=== PATIENT | male | born 1940 | race African-American/Black ===

== ENCOUNTER 2017-07-22 14:59 | Inpatient (IN) | payer MEDICARE, MEDICAID ==
[~2017-07-22] VITALS: Ht 193 cm; Wt 112.5 kg
[2017-07-22] MEDS ORDERED: ALBUTEROL (0.083%) 2.5MG/3ML NEB HHN STA (15:54)
[2017-07-22 16:18] LABS: EOSINOPHILS % 0.5 % (0.0-5.0); HEMATOCRIT. 42.4 % (42.0-52.0); HEMOGLOBIN. 14.1 g/dL (14.0-18.0); LYMPHOCYTES % 27.1 % (20.0-50.0); MEAN CORPUSCULAR VOLUME 87.2 fL (80.0-94.0); MEAN PLATELET VOLUME 10.3 fl (7.4-10.4); MONOCYTES % 10.3 % (2.0-8.0); NEUTROPHILS % 61.1 % (40.0-76.0); PLATELET 139 x1000/uL (130-400); RED BLOOD CELL COUNT 4.86 mill/uL (4.7-6.1); RED CELL DISTRIBUTION WIDTH 16.5 % (11.6-14.6)
[2017-07-22 16:22] LABS: INR 1.4
[2017-07-22 16:43] LABS: CARBON DIOXIDE 17 mEq/L (21-32); CHLORIDE 111 mEq/L (98-107)
[2017-07-22 16:50] LABS: TROPONIN I 0.43 ng/mL (0.00-0.04)
[2017-07-22] MEDS ORDERED: ASPIRIN 325MG EC TABLET PO ONE (17:00)
[2017-07-22] MEDS ORDERED: CLONIDINE 0.1MG TABLET PO PRN (19:00)
[2017-07-22] MEDS ORDERED: NITROGLYCERIN 0.4MG TABLET SL SL PRN (19:00)
[2017-07-22] MEDS ORDERED: ACETAMINOPHEN 325MG TABLET PO PRN (19:00)
[2017-07-22] MEDS ORDERED: NA PHOS,M-B/NA PHOS,DI-BA ENEMA 118ML PR PRN (19:00)
[2017-07-22] MEDS ORDERED: DIPHENHYDRAMINE 50MG/ML VIAL IV PRN (19:00)
[2017-07-22] MEDS ORDERED: TRAMADOL 50MG TABLET PO PRN (19:00)
[2017-07-22] MEDS ORDERED: MAGNESIUM/ALUMINUM HYDROXIDE/SIMETHICONE 30ML UDC PO PRN (19:00)
[2017-07-22] MEDS ORDERED: ONDANSETRON HCL 4MG/2ML VIAL IV PRN (19:00)
[2017-07-22] MEDS ORDERED: ZOLPIDEM TARTRATE 5MG TABLET PO PRN (19:00)
[2017-07-22] MEDS ORDERED: LORAZEPAM 2MG/ML CPJ IV PRN (19:00)
[2017-07-22] MEDS ORDERED: GUAIFENESIN 200MG/10ML SUGAR FREE UDC PO PRN (19:00)
[2017-07-22] MEDS ORDERED: MORPHINE SULFATE 2 MG/ML CPJ (NOT FOR IM USE) IV PRN (19:00)
[2017-07-22] MEDS ORDERED: DOCUSATE SODIUM 100MG CAPSULE PO PRN (19:00)
[2017-07-22] MEDS ORDERED: IPRATROPIUM/ALBUTEROL 0.5-3(2.5)MG/3ML NEB INH PRN (19:00)
[2017-07-22 19:49] LABS: HEPATITIS B SURFACE ANTIGEN NEGATIVE
[2017-07-22 19:54] LABS: FOLIC ACID (FOLATE) SERUM 12.9 ng/mL (>5.38)
[2017-07-22 20:00] VITALS: BP_SYST 142; BP_DIAS 70; BP_DIAS 76
[2017-07-22 20:18] LABS: HEPATITIS B CORE AB IGM NEGATIVE
[2017-07-22 20:19] LABS: HEPATITIS A AB IGM NEGATIVE (NEGATIVE)
[2017-07-22] MEDS: FAMOTIDINE 20MG/2ML VIAL IV SCH (20:48)
[2017-07-22] MEDS: METOPROLOL TARTRATE 25MG TABLET PO SCH (20:49)
[2017-07-22] MEDS: ENOXAPARIN 40MG/0.4ML SYR SUBCUT SCH (20:50)
[2017-07-23] VITALS: BP 113/72
[2017-07-23 01:28] LABS: CREATINE KINASE MB FRACTION 1.7 ng/mL (0.5-3.6); TROPONIN I 0.37 ng/mL (0.00-0.04)
[2017-07-23] MEDS ORDERED: LOSA25TA12 PO (01:49)
[2017-07-23] MEDS ORDERED: AMIO100T4 PO (01:49)
[2017-07-23] MEDS ORDERED: HYDR-4133 PO (01:49)
[2017-07-23 04:00] VITALS: BP 115/70
[2017-07-23 08:00] VITALS: BP 112/79
[2017-07-23] MEDS: ASPIRIN 325MG EC TABLET PO SCH (09:10)
[2017-07-23] MEDS: METOPROLOL TARTRATE 25MG TABLET PO SCH ×2 (09:10→21:00)
[2017-07-23 11:35] LABS: BASOPHILS % 1.3 % (0.0-2.0); EOSINOPHILS % 0.5 % (0.0-5.0); HEMATOCRIT. 43.6 % (42.0-52.0); HEMOGLOBIN. 14.4 g/dL (14.0-18.0); LYMPHOCYTES % 23.6 % (20.0-50.0); MEAN CORPUSCULAR VOLUME 88.1 fL (80.0-94.0); MONOCYTES % 10.7 % (2.0-8.0); NEUTROPHILS % 63.9 % (40.0-76.0); PLATELET 139 x1000/uL (130-400); RED BLOOD CELL COUNT 4.95 mill/uL (4.7-6.1); RED CELL DISTRIBUTION WIDTH 17.1 % (11.6-14.6)
[2017-07-23 11:50] LABS: CARBON DIOXIDE 22 mEq/L (21-32); CHLORIDE 110 mEq/L (98-107)
[2017-07-23 11:54] LABS: CREATINE KINASE MB FRACTION 1.9 ng/mL (0.5-3.6); TROPONIN I 0.32 ng/mL (0.00-0.04)
[2017-07-23 12:00] VITALS: BP 102/63
[2017-07-23 16:00] VITALS: BP 105/72
[2017-07-23 20:00] VITALS: BP 101/68
[2017-07-23] MEDS: FAMOTIDINE 20MG/2ML VIAL IV SCH (21:12)
[2017-07-23] MEDS: ENOXAPARIN 40MG/0.4ML SYR SUBCUT SCH (21:13)
[2017-07-24] VITALS: BP 94/64
[2017-07-24 02:42] LABS: *AMPHETAMINES SCREEN URINE NEGATIVE (NEGATIVE); *BARBITURATES SCREEN URINE NEGATIVE (NEGATIVE); *BENZODIAZEPINES SCREEN URINE NEGATIVE (NEGATIVE); *COCAINE SCREEN URINE NEGATIVE (NEGATIVE); CANNABINOID URINE SCREEN NEGATIVE (NEGATIVE); METHADONE URINE SCREEN NEGATIVE (NEGATIVE); OPIATES URINE SCREEN NEGATIVE (NEGATIVE); PHENCYCLIDINE URINE SCREEN NEGATIVE (NEGATIVE)
[2017-07-24 04:00] VITALS: BP 91/54
[2017-07-24 08:00] VITALS: BP 104/77
[2017-07-24] MEDS: ASPIRIN 325MG EC TABLET PO SCH (08:51)
[2017-07-24] MEDS: METOPROLOL TARTRATE 25MG TABLET PO SCH ×2 (08:51→08:52)
[2017-07-24 09:07] LABS: BASOPHILS % 1.2 % (0.0-2.0); EOSINOPHILS % 1.3 % (0.0-5.0); HEMATOCRIT. 42.9 % (42.0-52.0); HEMOGLOBIN. 14.2 g/dL (14.0-18.0); LYMPHOCYTES % 33.2 % (20.0-50.0); MEAN CORPUSCULAR HEMOGLOBIN 29.3 pg (28.0-32.0); MEAN CORPUSCULAR VOLUME 88.7 fL (80.0-94.0); MEAN PLATELET VOLUME 10.2 fl (7.4-10.4); MONOCYTES % 9.9 % (2.0-8.0); NEUTROPHILS % 54.4 % (40.0-76.0); PLATELET 134 x1000/uL (130-400); RED BLOOD CELL COUNT 4.84 mill/uL (4.7-6.1); RED CELL DISTRIBUTION WIDTH 17.6 % (11.6-14.6)
[2017-07-24 11:20] VITALS: BP 104/77
[2017-07-24 12:00] VITALS: BP 122/85
== END 2017-07-24 13:35 | disposition home health service (06) | DRG 280 ==
LOC: ER 16:05 → 7WST 17:14 → EDBEDREQ 17:18 → ENRESERV 17:39 → SUPCPDRO 18:47
PROVIDERS: ADMIT Internal Medicine; ATTEND Internal Medicine
DX: I21.4 Non-ST elevation (NSTEMI) myocardial infarction (principal); N17.0 Acute kidney failure with tubular necrosis; E44.0 Moderate protein-calorie malnutrition; I13.0 Hypertensive heart and chronic kidney disease with heart failure and stage 1 through stage 4 chronic kidney disease, or unspecified chronic kidney disease; I42.0 Dilated cardiomyopathy; E83.52 Hypercalcemia; I50.9 Heart failure, unspecified; J44.1 Chronic obstructive pulmonary disease with (acute) exacerbation; E66.9 Obesity, unspecified; I25.10 Atherosclerotic heart disease of native coronary artery without angina pectoris; J45.909 Unspecified asthma, uncomplicated; N18.9 Chronic kidney disease, unspecified; N40.0 Benign prostatic hyperplasia without lower urinary tract symptoms; Z79.82 Long term (current) use of aspirin; Z85.46 Personal history of malignant neoplasm of prostate; Z95.810 Presence of automatic (implantable) cardiac defibrillator; Z68.30 Body mass index [BMI] 30.0-30.9, adult; Z79.899 Other long term (current) drug therapy; I25.2 Old myocardial infarction
CPT/HCPCS: 36415; 71010; 76700; 80048; 80053; 80061; 80305; 82550; 82553; 82607; 82746; 83036; 83540; 83550; 83735; 83880; 84484; 85025; 85610; 86705; 86709; 86803; 87340; 93005; 93306; 93970; 94640; 97116; 97162; 99285; J1650; J3490; J7611

== ENCOUNTER 2017-08-18 13:36 | Inpatient (IN) | payer MEDICARE, MEDICAID ==
[~2017-08-18] VITALS: Ht 193 cm; Wt 115.2 kg
[~2017-08-18 13:36] MED LIST: AMIO100T4 PO; HYDR-4133 PO; LOSA25TA12 PO
[2017-08-18] MEDS ORDERED: CLONIDINE 0.2MG TABLET PO PRN (14:00)
[2017-08-18 14:04] VITALS: BP 105/78
[2017-08-18 14:22] VITALS: BP 105/78
[2017-08-18] MEDS ORDERED: FURO-151 PO (15:26)
[2017-08-18] MEDS ORDERED: ASPI-1159 PO (15:26)
[2017-08-18 15:30] LABS: HEMATOCRIT. 46.5 % (42.0-52.0); HEMOGLOBIN. 15.2 g/dL (14.0-18.0); MEAN CORPUSCULAR HEMOGLOBIN 29.2 pg (28.0-32.0); MEAN CORPUSCULAR VOLUME 89.3 fL (80.0-94.0); MEAN PLATELET VOLUME 9.7 fl (7.4-10.4); PLATELET 113 x1000/uL (130-400); RED BLOOD CELL COUNT 5.21 mill/uL (4.7-6.1); RED CELL DISTRIBUTION WIDTH 18.3 % (11.6-14.6)
[2017-08-18] MEDS: LOSARTAN POTASSIUM 25 MG TABLET PO SCH (15:33)
[2017-08-18 15:53] LABS: CARBON DIOXIDE 24 mEq/L (21-32); CHLORIDE 104 mEq/L (98-107); TROPONIN I 0.05 ng/mL (0.00-0.04)
[2017-08-18] MEDS: AMIODARONE HCL 200 MG TABLET PO SCH (16:07)
[2017-08-18] MEDS: ASPIRIN 81MG EC TABLET PO SCH (16:07)
[2017-08-18] MEDS: FUROSEMIDE 40MG/4ML VIAL IVP SCH (16:11)
[2017-08-18 16:42] VITALS: BP 128/89
[2017-08-18 17:36] LABS: PLATELET ESTIMATE DECREASED
[2017-08-18] MEDS: ENOXAPARIN 40MG/0.4ML SYR SUBCUT SCH (18:03)
[2017-08-18 19:32] LABS: CLARITY URINE CLEAR (CLEAR); COLOR URINE DARK YELLOW (YELLOW); GLUCOSE URINE NEGATIVE (NEGATIVE); KETONES URINE NEGATIVE (NEGATIVE); LEUKOCYTE ESTERASE URINE 1+ (NEGATIVE); NITRITE URINE NEGATIVE (NEGATIVE); OCCULT BLOOD URINE NEGATIVE (NEGATIVE); PROTEIN URINE 3+ (NEGATIVE); SPECIFIC GRAVITY URINE 1.019 (1.005-1.030)
[2017-08-18 20:00] VITALS: BP 121/82
[2017-08-18] MEDS: ALBUTEROL (0.083%) 2.5MG/3ML NEB HHN SCH (22:06)
[2017-08-19] VITALS: BP_SYST 110; BP_SYST 111; BP_DIAS 65; BP_DIAS 71
[2017-08-19] MEDS: ALBUTEROL (0.083%) 2.5MG/3ML NEB HHN SCH ×4 (02:44→21:04)
[2017-08-19 04:00] VITALS: BP 96/54
[2017-08-19 05:53] LABS: BASOPHILS % 1.1 % (0.0-2.0); EOSINOPHILS % 0.8 % (0.0-5.0); HEMATOCRIT. 42.8 % (42.0-52.0); HEMOGLOBIN. 13.9 g/dL (14.0-18.0); MEAN CORPUSCULAR VOLUME 89.6 fL (80.0-94.0); MEAN PLATELET VOLUME 9.9 fl (7.4-10.4); MONOCYTES % 10.1 % (2.0-8.0); PLATELET 108 x1000/uL (130-400); RED BLOOD CELL COUNT 4.78 mill/uL (4.7-6.1); RED CELL DISTRIBUTION WIDTH 18.6 % (11.6-14.6)
[2017-08-19 06:43] LABS: CARBON DIOXIDE 25 mEq/L (21-32); CHLORIDE 104 mEq/L (98-107)
[2017-08-19] MEDS ORDERED: LEVOTHYROXINE SODIUM 50MCG TABLET PO SCH (06:45)
[2017-08-19 07:04] LABS: HDL CHOLESTEROL 22 mg/dL (40-59); LDL CHOLESTEROL 67 mg/dL (5-100); TROPONIN I 0.05 ng/mL (0.00-0.04)
[2017-08-19 08:00] VITALS: BP 114/81
[2017-08-19] MEDS: LOSARTAN POTASSIUM 25 MG TABLET PO SCH (09:00)
[2017-08-19] MEDS: FUROSEMIDE 40MG/4ML VIAL IVP SCH ×2 (09:09→18:09)
[2017-08-19] MEDS: ASPIRIN 81MG EC TABLET PO SCH (09:09)
[2017-08-19] MEDS: AMIODARONE HCL 200 MG TABLET PO SCH (09:09)
[2017-08-19] MEDS: ENOXAPARIN 40MG/0.4ML SYR SUBCUT SCH (09:10)
[2017-08-19 12:00] VITALS: BP 112/63
[2017-08-19] MEDS: POTASSIUM CHLORIDE 20MEQ TABLET SR PO SCH (13:39)
[2017-08-19 16:00] VITALS: BP 96/62
[2017-08-19] MEDS: UMECLIDINIUM BROMIDE 1 INH BLST.W.DEV IH SCH (18:28)
[2017-08-19 20:00] VITALS: BP 117/79
[2017-08-20] VITALS: BP 120/78
[2017-08-20] MEDS: ALBUTEROL (0.083%) 2.5MG/3ML NEB HHN SCH ×2 (02:49→09:03)
[2017-08-20 04:00] VITALS: BP 110/76
[2017-08-20 06:06] LABS: EOSINOPHILS % 0.5 % (0.0-5.0); HEMATOCRIT. 43.3 % (42.0-52.0); HEMOGLOBIN. 14.1 g/dL (14.0-18.0); LYMPHOCYTES % 25.5 % (20.0-50.0); MEAN CORPUSCULAR HEMOGLOBIN 28.9 pg (28.0-32.0); MEAN CORPUSCULAR VOLUME 88.5 fL (80.0-94.0); MEAN PLATELET VOLUME 10.2 fl (7.4-10.4); MONOCYTES % 10.2 % (2.0-8.0); NEUTROPHILS % 62.8 % (40.0-76.0); PLATELET 121 x1000/uL (130-400); RED BLOOD CELL COUNT 4.89 mill/uL (4.7-6.1); RED CELL DISTRIBUTION WIDTH 18.1 % (11.6-14.6)
[2017-08-20] MEDS: FUROSEMIDE 40MG/4ML VIAL IVP SCH ×2 (06:36→17:39)
[2017-08-20] MEDS: LEVOTHYROXINE SODIUM 75MCG TABLET PO SCH (06:36)
[2017-08-20 06:53] LABS: T4 FREE 1.77 ng/dL (0.76-1.46)
[2017-08-20 08:00] VITALS: BP 119/80
[2017-08-20] MEDS: LOSARTAN POTASSIUM 25 MG TABLET PO SCH (09:00)
[2017-08-20] MEDS: POTASSIUM CHLORIDE 20MEQ TABLET SR PO SCH (09:34)
[2017-08-20] MEDS: ENOXAPARIN 40MG/0.4ML SYR SUBCUT SCH (09:34)
[2017-08-20] MEDS: AMIODARONE HCL 200 MG TABLET PO SCH (09:34)
[2017-08-20] MEDS: ASPIRIN 81MG EC TABLET PO SCH (09:34)
[2017-08-20 12:00] VITALS: BP 115/76
[2017-08-20] MEDS: UMECLIDINIUM BROMIDE 1 INH BLST.W.DEV IH SCH (14:00)
[2017-08-20 16:00] VITALS: BP 111/70
[2017-08-20 20:00] VITALS: BP 107/73
[2017-08-21] VITALS: BP 100/59
[2017-08-21 04:00] VITALS: BP 98/64
[2017-08-21] MEDS: FUROSEMIDE 40MG/4ML VIAL IVP SCH ×2 (06:50→17:29)
[2017-08-21] MEDS: LEVOTHYROXINE SODIUM 75MCG TABLET PO SCH (06:50)
[2017-08-21 08:00] VITALS: BP 124/94
[2017-08-21] MEDS: LOSARTAN POTASSIUM 25 MG TABLET PO SCH (08:41)
[2017-08-21] MEDS: AMIODARONE HCL 200 MG TABLET PO SCH (09:18)
[2017-08-21] MEDS: ASPIRIN 81MG EC TABLET PO SCH (09:18)
[2017-08-21] MEDS: POTASSIUM CHLORIDE 20MEQ TABLET SR PO SCH (09:18)
[2017-08-21] MEDS: ENOXAPARIN 40MG/0.4ML SYR SUBCUT SCH (09:18)
[2017-08-21] MEDS: UMECLIDINIUM BROMIDE 1 INH BLST.W.DEV IH SCH (09:19)
[2017-08-21 11:42] VITALS: BP 118/82
[2017-08-21] MEDS: ISOSORB DINIT/HYDRALAZINE HCL 20/37.5MG TABLET PO SCH ×2 (14:22→21:13)
[2017-08-21 16:00] VITALS: BP 107/59
[2017-08-21 20:00] VITALS: BP 97/66
[2017-08-22] VITALS: BP 100/60
[2017-08-22 04:00] VITALS: BP 96/66
[2017-08-22] MEDS: ISOSORB DINIT/HYDRALAZINE HCL 20/37.5MG TABLET PO SCH ×3 (06:00→21:17)
[2017-08-22] MEDS: LEVOTHYROXINE SODIUM 75MCG TABLET PO SCH (06:04)
[2017-08-22 07:38] VITALS: BP 121/80
[2017-08-22 07:41] LABS: BASOPHILS % 1.1 % (0.0-2.0); EOSINOPHILS % 1.2 % (0.0-5.0); HEMATOCRIT. 41.4 % (42.0-52.0); HEMOGLOBIN. 13.5 g/dL (14.0-18.0); LYMPHOCYTES % 22.6 % (20.0-50.0); MEAN CORPUSCULAR HEMOGLOBIN 29.1 pg (28.0-32.0); MEAN PLATELET VOLUME 9.8 fl (7.4-10.4); MONOCYTES % 9.7 % (2.0-8.0); NEUTROPHILS % 65.4 % (40.0-76.0); PLATELET 115 x1000/uL (130-400); RED BLOOD CELL COUNT 4.65 mill/uL (4.7-6.1); RED CELL DISTRIBUTION WIDTH 17.7 % (11.6-14.6)
[2017-08-22 08:32] LABS: TROPONIN I 0.05 ng/mL (0.00-0.04)
[2017-08-22] MEDS: ASPIRIN 81MG EC TABLET PO SCH (08:37)
[2017-08-22] MEDS: POTASSIUM CHLORIDE 20MEQ TABLET SR PO SCH (08:37)
[2017-08-22] MEDS: FUROSEMIDE 40MG/4ML VIAL IVP SCH ×2 (08:37→17:27)
[2017-08-22] MEDS: UMECLIDINIUM BROMIDE 1 INH BLST.W.DEV IH SCH (08:39)
[2017-08-22] MEDS: ENOXAPARIN 40MG/0.4ML SYR SUBCUT SCH (08:40)
[2017-08-22] MEDS: LOSARTAN POTASSIUM 25 MG TABLET PO SCH (08:45)
[2017-08-22 11:45] VITALS: BP 110/72
[2017-08-22] MEDS ORDERED: CLONIDINE 0.1MG TABLET PO PRN (12:32)
[2017-08-22] MEDS: THROAT LOZENGES-BENZOCAINE/MENTH/CETYLPYRD CL LOZENGES MM PRN ×2 (13:03→21:18)
[2017-08-22] MEDS: CARVEDILOL 3.125 MG TABLET PO SCH (14:11)
[2017-08-22 15:38] VITALS: BP 91/58
[2017-08-22 20:00] VITALS: BP 122/79
[2017-08-23] VITALS: BP 121/59
[2017-08-23 04:00] VITALS: BP 113/65
[2017-08-23] MEDS: LEVOTHYROXINE SODIUM 75MCG TABLET PO SCH (06:05)
[2017-08-23] MEDS: ISOSORB DINIT/HYDRALAZINE HCL 20/37.5MG TABLET PO SCH ×2 (06:06→13:58)
[2017-08-23 06:46] LABS: BASOPHILS % 0.7 % (0.0-2.0); EOSINOPHILS % 0.6 % (0.0-5.0); HEMOGLOBIN. 13.2 g/dL (14.0-18.0); LYMPHOCYTES % 16.9 % (20.0-50.0); MEAN CORPUSCULAR HEMOGLOBIN 29.2 pg (28.0-32.0); MEAN CORPUSCULAR VOLUME 88.5 fL (80.0-94.0); MEAN PLATELET VOLUME 10.1 fl (7.4-10.4); MONOCYTES % 7.7 % (2.0-8.0); NEUTROPHILS % 74.1 % (40.0-76.0); PLATELET 122 x1000/uL (130-400); RED BLOOD CELL COUNT 4.51 mill/uL (4.7-6.1); RED CELL DISTRIBUTION WIDTH 18.2 % (11.6-14.6)
[2017-08-23 08:00] VITALS: BP 101/54
[2017-08-23] MEDS: ASPIRIN 81MG EC TABLET PO SCH (08:35)
[2017-08-23] MEDS: ENOXAPARIN 40MG/0.4ML SYR SUBCUT SCH (08:35)
[2017-08-23] MEDS: POTASSIUM CHLORIDE 20MEQ TABLET SR PO SCH (08:35)
[2017-08-23] MEDS: THROAT LOZENGES-BENZOCAINE/MENTH/CETYLPYRD CL LOZENGES MM PRN (08:36)
[2017-08-23] MEDS: FUROSEMIDE 40MG/4ML VIAL IVP SCH (08:36)
[2017-08-23] MEDS: UMECLIDINIUM BROMIDE 1 INH BLST.W.DEV IH SCH (08:36)
[2017-08-23] MEDS: LOSARTAN POTASSIUM 25 MG TABLET PO SCH (09:00)
[2017-08-23] MEDS: CARVEDILOL 3.125 MG TABLET PO SCH (09:00)
[2017-08-23 12:00] VITALS: BP 96/45
[2017-08-23 14:11] VITALS: BP 96/45
== END 2017-08-23 14:30 | disposition home or self-care (01) | DRG 291 ==
LOC: 5WST 13:36
PROVIDERS: ADMIT Specialist; ATTEND Specialist
DX: I13.0 Hypertensive heart and chronic kidney disease with heart failure and stage 1 through stage 4 chronic kidney disease, or unspecified chronic kidney disease (principal); I50.23 Acute on chronic systolic (congestive) heart failure; E46 Unspecified protein-calorie malnutrition; D69.6 Thrombocytopenia, unspecified; I42.0 Dilated cardiomyopathy; N18.3 Chronic kidney disease, stage 3 (moderate); J44.9 Chronic obstructive pulmonary disease, unspecified; J98.01 Acute bronchospasm; I49.9 Cardiac arrhythmia, unspecified; E03.9 Hypothyroidism, unspecified; N40.0 Benign prostatic hyperplasia without lower urinary tract symptoms; E78.00 Pure hypercholesterolemia, unspecified; E87.6 Hypokalemia; I25.10 Atherosclerotic heart disease of native coronary artery without angina pectoris; Z79.82 Long term (current) use of aspirin; Z85.46 Personal history of malignant neoplasm of prostate; Z87.891 Personal history of nicotine dependence; Z91.14 Patient's other noncompliance with medication regimen; Z95.810 Presence of automatic (implantable) cardiac defibrillator; Z79.899 Other long term (current) drug therapy; Z68.30 Body mass index [BMI] 30.0-30.9, adult
CPT/HCPCS: 36415; 71010; 78582; 80048; 80053; 80061; 81001; 83735; 83880; 84439; 84443; 84481; 84484; 85025; 85379; 87086; 93005; 93970; 94640; A9558; C1893; J1650; J1940; J7611

== ENCOUNTER 2017-10-05 16:22 | Inpatient (IN) | payer MEDICARE, MEDICAID ==
[~2017-10-05] VITALS: Ht 198.1 cm; Wt 99.3 kg
[~2017-10-05 16:22] MED LIST changes: +ASPI-1159 PO; +ATROV INH; +CARV3.1242 PO; +FURO-151 PO; +LEVO75TA7 PO; +POTA10TA11 PO
[2017-10-05] MEDS ORDERED: ACETAMINOPHEN WITH CODEINE 300/30MG TABLET PO STA (16:36)
[2017-10-05] MEDS ORDERED: ONDANSETRON HCL 4MG/2ML VIAL IV STA (17:58)
[2017-10-05 18:10] LABS: HEMOGLOBIN. 14.6 g/dL (14.0-18.0); MEAN CORPUSCULAR HEMOGLOBIN 29.2 pg (28.0-32.0); MEAN CORPUSCULAR VOLUME 88.4 fL (80.0-94.0); MEAN PLATELET VOLUME 8.9 fl (7.4-10.4); PLATELET 146 x1000/uL (130-400); RED BLOOD CELL COUNT 4.98 mill/uL (4.7-6.1); RED CELL DISTRIBUTION WIDTH 21.1 % (11.6-14.6)
[2017-10-05 18:17] LABS: CHLORIDE 101 mEq/L (98-107)
[2017-10-05 18:18] LABS: INR 1.1; PROTHROMBIN TIME 11.7 sec (9.4-11.6)
[2017-10-05 18:21] LABS: CARBON DIOXIDE 27 mEq/L (21-32)
[2017-10-05 18:44] LABS: PLATELET ESTIMATE NORMAL
[2017-10-05] MEDS ORDERED: NITROGLYCERIN 0.4MG TABLET SL SL PRN (19:45)
[2017-10-05] MEDS ORDERED: MAGNESIUM/ALUMINUM HYDROXIDE/SIMETHICONE 30ML UDC PO PRN (19:45)
[2017-10-05] MEDS ORDERED: DIPHENHYDRAMINE 50MG/ML VIAL IV PRN (19:45)
[2017-10-05] MEDS ORDERED: DOCUSATE SODIUM 100MG CAPSULE PO PRN (19:45)
[2017-10-05] MEDS ORDERED: NA PHOS,M-B/NA PHOS,DI-BA ENEMA 118ML PR PRN (19:45)
[2017-10-05] MEDS ORDERED: CLONIDINE 0.1MG TABLET PO PRN (19:45)
[2017-10-05] MEDS ORDERED: GUAIFENESIN 200MG/10ML SUGAR FREE UDC PO PRN (19:45)
[2017-10-05] MEDS ORDERED: IPRATROPIUM/ALBUTEROL 0.5-3(2.5)MG/3ML NEB INH PRN (19:45)
[2017-10-05] MEDS ORDERED: ONDANSETRON HCL 4MG/2ML VIAL IV PRN (19:45)
[2017-10-05] MEDS ORDERED: ZOLPIDEM TARTRATE 5MG TABLET PO PRN (20:30)
[2017-10-05] MEDS ORDERED: FAMOTIDINE 20MG/2ML VIAL IV SCH (21:00)
[2017-10-05] MEDS: FUROSEMIDE 40MG TABLET PO SCH (21:41)
[2017-10-05] MEDS: SPIRONOLACTONE 25MG TABLET PO SCH (21:42)
[2017-10-05] MEDS ORDERED: FUROSEMIDE 40MG TABLET PO NR (21:45)
[2017-10-05] MEDS ORDERED: ENOXAPARIN 40MG/0.4ML SYR SUBCUT SCH (22:30)
[2017-10-05 22:56] LABS: CREATINE KINASE MB FRACTION 1.3 ng/mL (0.5-3.6); TROPONIN I 0.03 ng/mL (0.00-0.04)
[2017-10-05 23:41] VITALS: BP 94/62
[2017-10-06 00:35] VITALS: BP 97/70
[2017-10-06 04:00] VITALS: BP 101/68
[2017-10-06] MEDS: CARVEDILOL 3.125 MG TABLET PO SCH ×2 (05:00→18:00)
[2017-10-06 07:32] VITALS: BP 132/72
[2017-10-06 07:54] LABS: CREATINE KINASE MB FRACTION 1.4 ng/mL (0.5-3.6); TROPONIN I 0.04 ng/mL (0.00-0.04)
[2017-10-06] MEDS ORDERED: VANCOMYCIN HCL 500 MG/VIAL ONE (08:31)
[2017-10-06] MEDS ORDERED: NORMAL SALINE 0.9% 10 ML SYR ONE (08:41)
[2017-10-06] MEDS ORDERED: BACITRACIN ZINC 15GM TUBE TOP ONE (08:41)
[2017-10-06] MEDS ORDERED: EPINEPHRINE 1:1000 1 MG/ML AMP ONE (08:41)
[2017-10-06] MEDS ORDERED: SODIUM CHLORIDE 0.9% IRRIG SOL 3,000 ML IR ONE (08:42)
[2017-10-06] MEDS ORDERED: BACITRACIN 50,000 UNITS/VIAL ONE (08:42)
[2017-10-06] MEDS: FAMOTIDINE 20MG/2ML VIAL IV SCH (09:00)
[2017-10-06] MEDS: SPIRONOLACTONE 25MG TABLET PO SCH ×2 (09:00→20:48)
[2017-10-06] MEDS: FUROSEMIDE 40MG TABLET PO SCH ×2 (09:00→20:48)
[2017-10-06] MEDS ORDERED: DOPAMINE 400MG PREMIX 250 ML IV ONE (09:14)
[2017-10-06] MEDS ORDERED: CALCIUM CHLORIDE 1GM/10ML SYR IV ONE (10:11)
[2017-10-06] MEDS ORDERED: ONDANSETRON HCL 4MG/2ML VIAL IV PRN (10:15)
[2017-10-06] MEDS ORDERED: LABETALOL HCL 5MG/ML VIAL 20ML IV PRN (10:15)
[2017-10-06] MEDS ORDERED: HYDROMORPHONE HCL/PF 2MG/ML CPJ IV PRN (10:15)
[2017-10-06] MEDS ORDERED: MEPERIDINE HCL/PF 25MG/ML CPJ IV PRN (10:15)
[2017-10-06] MEDS ORDERED: DEXAMETHASONE 4MG/ML 1ML VIAL ONE (10:26)
[2017-10-06] MEDS ORDERED: CEFAZOLIN SODIUM 1000MG/VIAL ONE (10:26)
[2017-10-06] MEDS ORDERED: VASOPRESSIN 20 UNIT/ML 1ML ONE (10:26)
[2017-10-06 12:20] VITALS: BP 105/65
[2017-10-06 15:52] VITALS: BP 104/72
[2017-10-06] MEDS ORDERED: CEFAZOLIN 1000MG PREMIX 50 ML IV SCH (18:30)
[2017-10-06 20:00] VITALS: BP 97/62
[2017-10-06] MEDS: CEFAZOLIN 1000MG PREMIX 50 ML IV SCH (20:48)
[2017-10-07] VITALS (7 sets, daily range): BP systolic 95–119; BP diastolic 62–75
[2017-10-07] MEDS: MORPHINE SULFATE 2 MG/ML CPJ (NOT FOR IM USE) IV PRN (00:39)
[2017-10-07] MEDS: CARVEDILOL 3.125 MG TABLET PO SCH ×2 (06:00→18:00)
[2017-10-07] MEDS: CEFAZOLIN 1000MG PREMIX 50 ML IV SCH (06:30)
[2017-10-07 07:21] LABS: BASOPHILS % 0.5 % (0.0-2.0); HEMATOCRIT. 41.6 % (42.0-52.0); HEMOGLOBIN. 13.5 g/dL (14.0-18.0); LYMPHOCYTES % 8.8 % (20.0-50.0); MEAN CORPUSCULAR HEMOGLOBIN 28.3 pg (28.0-32.0); MEAN CORPUSCULAR VOLUME 87.3 fL (80.0-94.0); MEAN PLATELET VOLUME 8.7 fl (7.4-10.4); MONOCYTES % 8.2 % (2.0-8.0); NEUTROPHILS % 82.5 % (40.0-76.0); PLATELET 141 x1000/uL (130-400); RED BLOOD CELL COUNT 4.77 mill/uL (4.7-6.1); RED CELL DISTRIBUTION WIDTH 20.8 % (11.6-14.6)
[2017-10-07] MEDS: SPIRONOLACTONE 25MG TABLET PO SCH ×2 (09:58→21:56)
[2017-10-07] MEDS: FUROSEMIDE 40MG TABLET PO SCH ×2 (09:58→21:56)
[2017-10-07] MEDS: FAMOTIDINE 20MG/2ML VIAL IV SCH (10:46)
[2017-10-07] MEDS: CARVEDILOL 6.25 MG TABLET PO SCH (21:00)
[2017-10-08] VITALS: BP 99/70
[2017-10-08 04:00] VITALS: BP 95/62
[2017-10-08 05:12] LABS: BASOPHILS % 0.4 % (0.0-2.0); EOSINOPHILS % 0.4 % (0.0-5.0); HEMATOCRIT. 38.1 % (42.0-52.0); HEMOGLOBIN. 12.4 g/dL (14.0-18.0); LYMPHOCYTES % 12.5 % (20.0-50.0); MEAN CORPUSCULAR HEMOGLOBIN 28.9 pg (28.0-32.0); MEAN CORPUSCULAR VOLUME 88.6 fL (80.0-94.0); MEAN PLATELET VOLUME 8.8 fl (7.4-10.4); MONOCYTES % 8.3 % (2.0-8.0); NEUTROPHILS % 78.4 % (40.0-76.0); PLATELET 149 x1000/uL (130-400); RED CELL DISTRIBUTION WIDTH 21.4 % (11.6-14.6)
[2017-10-08] MEDS: ACETAMINOPHEN 325MG TABLET PO PRN ×2 (06:15→21:13)
[2017-10-08 08:00] VITALS: BP 91/64
[2017-10-08] MEDS: FAMOTIDINE 20MG/2ML VIAL IV SCH (08:32)
[2017-10-08] MEDS: CARVEDILOL 6.25 MG TABLET PO SCH ×2 (08:32→21:00)
[2017-10-08] MEDS: TRAMADOL 50MG TABLET PO PRN (08:33)
[2017-10-08] MEDS: SPIRONOLACTONE 25MG TABLET PO SCH ×2 (08:38→21:12)
[2017-10-08] MEDS: FUROSEMIDE 40MG TABLET PO SCH ×2 (08:38→21:12)
[2017-10-08 12:00] VITALS: BP 92/53
[2017-10-08 16:00] VITALS: BP 96/58
[2017-10-08 20:00] VITALS: BP 105/93
[2017-10-08] MEDS: MORPHINE SULFATE 2 MG/ML CPJ (NOT FOR IM USE) IV PRN (22:00)
[2017-10-09] VITALS: BP 108/76
[2017-10-09 04:00] VITALS: BP 110/85
[2017-10-09 07:57] VITALS: BP 96/48
[2017-10-09] MEDS: FUROSEMIDE 40MG TABLET PO SCH ×2 (08:42→20:56)
[2017-10-09] MEDS: SPIRONOLACTONE 25MG TABLET PO SCH ×2 (08:42→20:55)
[2017-10-09] MEDS: FAMOTIDINE 20MG/2ML VIAL IV SCH (08:42)
[2017-10-09] MEDS: CARVEDILOL 6.25 MG TABLET PO SCH ×2 (08:42→20:56)
[2017-10-09] MEDS: TRAMADOL 50MG TABLET PO PRN (12:59)
[2017-10-09 16:00] VITALS: BP 129/91
[2017-10-09 20:00] VITALS: BP 106/66
[2017-10-09 21:00] VITALS: BP 106/66
== END 2017-10-09 22:14 | DRG 469 ==
LOC: ER 17:06 → 6WST 18:53 → EDBEDREQ 18:56 → EDBEDREQTM 18:56 → ENRESERV 21:02
PROVIDERS: ADMIT Internal Medicine; ATTEND Internal Medicine
PROC: 0SRS0JZ Replacement of Left Hip Joint, Femoral Surface with Synthetic Substitute, Open Approach (ICD-10-PCS; principal; 2017-10-07)
DX: S72.002A Fracture of unspecified part of neck of left femur, initial encounter for closed fracture (principal); N17.0 Acute kidney failure with tubular necrosis; G93.40 Encephalopathy, unspecified; E44.0 Moderate protein-calorie malnutrition; I50.43 Acute on chronic combined systolic (congestive) and diastolic (congestive) heart failure; I42.0 Dilated cardiomyopathy; I11.0 Hypertensive heart disease with heart failure; E83.51 Hypocalcemia; D64.9 Anemia, unspecified; E03.9 Hypothyroidism, unspecified; E11.9 Type 2 diabetes mellitus without complications; E78.5 Hyperlipidemia, unspecified; F03.90 Unspecified dementia, unspecified severity, without behavioral disturbance, psychotic disturbance, mood disturbance, and anxiety; H54.7 Unspecified visual loss; I25.10 Atherosclerotic heart disease of native coronary artery without angina pectoris; W18.39XA Other fall on same level, initial encounter; R74.8 Abnormal levels of other serum enzymes; E80.7 Disorder of bilirubin metabolism, unspecified; J44.9 Chronic obstructive pulmonary disease, unspecified; R13.10 Dysphagia, unspecified; Z79.899 Other long term (current) drug therapy; I25.2 Old myocardial infarction; Z82.49 Family history of ischemic heart disease and other diseases of the circulatory system; Z87.891 Personal history of nicotine dependence; Z85.46 Personal history of malignant neoplasm of prostate; Z95.810 Presence of automatic (implantable) cardiac defibrillator; Y93.89 Activity, other specified; Y92.090 Kitchen in other non-institutional residence as the place of occurrence of the external cause; Y99.8 Other external cause status; Z68.25 Body mass index [BMI] 25.0-25.9, adult
CPT/HCPCS: 36415; 70450; 71010; 72170; 73502; 80048; 80053; 82550; 82553; 83735; 84484; 85025; 85610; 85730; 88305; 88311; 93005; 93970; 96374; 96375; 97116; 97162; 97167; 97530; 99285; A4216; J0171; J0690; J1100; J1200; J1265; J1650; J2270; J2405; J3370; J3490; J7030; A4315

== ENCOUNTER 2017-10-09 21:50 | Inpatient (IN) | payer MEDICARE, MEDICAID ==
[~2017-10-09] VITALS: Ht 198.1 cm; Wt 99.3 kg
[2017-10-09 21:50] VITALS: BP 106/69
[2017-10-09] MEDS ORDERED: MORPHINE SULFATE 2 MG/ML CPJ (NOT FOR IM USE) IV PRN (23:45)
[2017-10-09] MEDS ORDERED: NITROGLYCERIN 0.4MG TABLET SL SL PRN (23:45)
[2017-10-09] MEDS ORDERED: GUAIFENESIN 200MG/10ML SUGAR FREE UDC PO PRN (23:45)
[2017-10-09] MEDS ORDERED: DIPHENHYDRAMINE 50MG/ML VIAL IV PRN (23:45)
[2017-10-09] MEDS ORDERED: ZOLPIDEM TARTRATE 5MG TABLET PO PRN (23:45)
[2017-10-09] MEDS ORDERED: ONDANSETRON HCL 4MG/2ML VIAL IV PRN (23:45)
[2017-10-09] MEDS ORDERED: IPRATROPIUM/ALBUTEROL 0.5-3(2.5)MG/3ML NEB HHN PRN (23:45)
[2017-10-09] MEDS ORDERED: MAGNESIUM/ALUMINUM HYDROXIDE/SIMETHICONE 30ML UDC PO PRN (23:45)
[2017-10-09] MEDS ORDERED: CLONIDINE 0.1MG TABLET PO PRN (23:45)
[2017-10-09] MEDS ORDERED: NA PHOS,M-B/NA PHOS,DI-BA ENEMA 118ML PR PRN (23:45)
[2017-10-09] MEDS ORDERED: DOCUSATE SODIUM 100MG CAPSULE PO PRN (23:45)
[2017-10-09 23:59] VITALS: BP 106/69
[2017-10-10] VITALS: BP 118/68
[2017-10-10] MEDS: TRAMADOL 50MG TABLET PO PRN ×2 (01:19→19:44)
[2017-10-10 07:01] LABS: HEMATOCRIT 39.2 % (42.0-52.0); HEMOGLOBIN 12.6 g/dL (14.0-18.0); MEAN CORPUSCULAR HEMOGLOBIN 28.4 pg (28.0-32.0); PLATELET 168 x1000/uL (130-400); RED BLOOD CELL COUNT 4.45 mill/uL (4.7-6.1); RED CELL DISTRIBUTION WIDTH 21.3 % (11.6-14.6)
[2017-10-10 08:00] VITALS: BP 93/57
[2017-10-10] MEDS: ASCORBIC ACID 500 MG TABLET PO SCH ×2 (08:33→22:08)
[2017-10-10] MEDS: ZINC SULFATE 220 MG ( 50 ) CAPSULE PO SCH (08:33)
[2017-10-10] MEDS: FUROSEMIDE 40MG TABLET PO SCH ×2 (08:33→22:08)
[2017-10-10] MEDS: FERROUS SULFATE 300MG/5ML UDC PO SCH ×3 (08:33→17:00)
[2017-10-10] MEDS: FAMOTIDINE 20MG/2ML VIAL IV SCH (08:33)
[2017-10-10] MEDS: CARVEDILOL 6.25 MG TABLET PO SCH ×2 (08:43→21:00)
[2017-10-10] MEDS: SPIRONOLACTONE 25MG TABLET PO SCH ×2 (08:43→21:00)
[2017-10-10 09:04] LABS: CARBON DIOXIDE 26 mEq/L (21-32); CHLORIDE 103 mEq/L (98-107)
[2017-10-10 09:42] LABS: PREALBUMIN 11.6 mg/dL (20.0-40.0)
[2017-10-10] MEDS ORDERED: ENOXAPARIN 40MG/0.4ML SYR SUBCUT SCH (14:00)
[2017-10-10] MEDS ORDERED: LORAZEPAM 2MG/ML CPJ IV PRN (16:00)
[2017-10-10 20:00] VITALS: BP 128/70
[2017-10-11 08:00] VITALS: BP 105/68
[2017-10-11] MEDS: SPIRONOLACTONE 25MG TABLET PO SCH (09:00)
[2017-10-11] MEDS: CARVEDILOL 6.25 MG TABLET PO SCH (09:00)
[2017-10-11 09:38] LABS: BASOPHILS % 0.6 % (0.0-2.0); EOSINOPHILS % 2.8 % (0.0-5.0); HEMATOCRIT. 42.2 % (42.0-52.0); HEMOGLOBIN. 13.8 g/dL (14.0-18.0); LYMPHOCYTES % 21.6 % (20.0-50.0); MEAN CORPUSCULAR HEMOGLOBIN 28.8 pg (28.0-32.0); MEAN CORPUSCULAR VOLUME 88.4 fL (80.0-94.0); MEAN PLATELET VOLUME 8.6 fl (7.4-10.4); MONOCYTES % 11.7 % (2.0-8.0); NEUTROPHILS % 63.3 % (40.0-76.0); PLATELET 192 x1000/uL (130-400); RED BLOOD CELL COUNT 4.77 mill/uL (4.7-6.1); RED CELL DISTRIBUTION WIDTH 21.6 % (11.6-14.6)
[2017-10-11] MEDS: FUROSEMIDE 40MG TABLET PO SCH (09:49)
[2017-10-11] MEDS: FAMOTIDINE 20MG/2ML VIAL IV SCH (09:49)
[2017-10-11] MEDS: FERROUS SULFATE 300MG/5ML UDC PO SCH ×3 (09:49→18:05)
[2017-10-11] MEDS: ASCORBIC ACID 500 MG TABLET PO SCH ×2 (09:49→22:31)
[2017-10-11] MEDS: ZINC SULFATE 220 MG ( 50 ) CAPSULE PO SCH (09:49)
[2017-10-11 12:54] LABS: ETHANOL BLOOD < 10 mg/dL; T4 FREE 1.84 ng/dL (0.76-1.46)
[2017-10-11 15:50] LABS: FOLIC ACID (FOLATE) SERUM 7.7 ng/mL (>5.38)
[2017-10-11 16:58] LABS: AMMONIA 52 uMol/L (<32)
[2017-10-11 20:00] VITALS: BP 101/60
[2017-10-11] MEDS: CARVEDILOL 3.125 MG TABLET PO SCH (21:00)
[2017-10-12] MEDS: IPRATROPIUM/ALBUTEROL 0.5-3(2.5)MG/3ML NEB HHN SCH ×4 (00:36→21:58)
[2017-10-12 06:57] LABS: BASOPHILS % 0.9 % (0.0-2.0); EOSINOPHILS % 1.7 % (0.0-5.0); HEMATOCRIT. 42.5 % (42.0-52.0); HEMOGLOBIN. 13.9 g/dL (14.0-18.0); LYMPHOCYTES % 20.1 % (20.0-50.0); MEAN CORPUSCULAR VOLUME 88.5 fL (80.0-94.0); MEAN PLATELET VOLUME 8.5 fl (7.4-10.4); MONOCYTES % 9.9 % (2.0-8.0); NEUTROPHILS % 67.4 % (40.0-76.0); PLATELET 176 x1000/uL (130-400); RED CELL DISTRIBUTION WIDTH 22.7 % (11.6-14.6)
[2017-10-12 08:00] VITALS: BP 100/62
[2017-10-12] MEDS: FUROSEMIDE 40MG TABLET PO SCH (09:00)
[2017-10-12] MEDS: CARVEDILOL 3.125 MG TABLET PO SCH ×2 (09:00→21:00)
[2017-10-12] MEDS: FAMOTIDINE 20MG/2ML VIAL IV SCH (09:00)
[2017-10-12] MEDS: ZINC SULFATE 220 MG ( 50 ) CAPSULE PO SCH (09:24)
[2017-10-12] MEDS: FERROUS SULFATE 300MG/5ML UDC PO SCH ×3 (09:24→17:00)
[2017-10-12] MEDS: ASCORBIC ACID 500 MG TABLET PO SCH ×2 (09:24→23:35)
[2017-10-12 10:42] LABS: PLATELET ESTIMATE NORMAL
[2017-10-12] MEDS: TRAMADOL 50MG TABLET PO PRN (10:45)
[2017-10-12] MEDS: LORAZEPAM 1MG TABLET PO PRN (11:51)
[2017-10-12] MEDS: LACTULOSE 20G/30ML UDC PO SCH ×3 (12:00→23:35)
[2017-10-12 20:00] VITALS: BP 99/60
[2017-10-13] MEDS: ACETAMINOPHEN 325MG TABLET PO PRN ×2 (04:55→12:25)
[2017-10-13 06:49] LABS: HEMATOCRIT. 42.3 % (42.0-52.0); HEMOGLOBIN. 13.8 g/dL (14.0-18.0); MEAN CORPUSCULAR HEMOGLOBIN 28.9 pg (28.0-32.0); MEAN CORPUSCULAR VOLUME 88.7 fL (80.0-94.0); MEAN PLATELET VOLUME 8.6 fl (7.4-10.4); PLATELET 167 x1000/uL (130-400); RED BLOOD CELL COUNT 4.77 mill/uL (4.7-6.1); RED CELL DISTRIBUTION WIDTH 22.1 % (11.6-14.6)
[2017-10-13 07:30] LABS: AMMONIA < 25 uMol/L (<32)
[2017-10-13 08:00] VITALS: BP 106/69
[2017-10-13] MEDS: IPRATROPIUM/ALBUTEROL 0.5-3(2.5)MG/3ML NEB HHN SCH ×2 (08:05→12:00)
[2017-10-13 08:08] LABS: CARBON DIOXIDE 24 mEq/L (21-32); CHLORIDE 102 mEq/L (98-107)
[2017-10-13 08:56] LABS: NUCLEATED RED BLOOD CELLS 1 /100 WBC
[2017-10-13 08:57] LABS: PLATELET ESTIMATE NORMAL
[2017-10-13] MEDS: ZINC SULFATE 220 MG ( 50 ) CAPSULE PO SCH (10:18)
[2017-10-13] MEDS: ASCORBIC ACID 500 MG TABLET PO SCH ×2 (10:18→21:00)
[2017-10-13] MEDS: FERROUS SULFATE 300MG/5ML UDC PO SCH ×3 (10:19→17:32)
[2017-10-13] MEDS: LACTULOSE 20G/30ML UDC PO SCH ×2 (10:19→21:00)
[2017-10-13] MEDS: FUROSEMIDE 40MG TABLET PO SCH (10:19)
[2017-10-13] MEDS: FAMOTIDINE 20MG TABLET PO SCH (10:20)
[2017-10-13] MEDS: CARVEDILOL 3.125 MG TABLET PO SCH ×2 (10:21→21:00)
[2017-10-13] MEDS: LORAZEPAM 1MG TABLET PO PRN ×2 (10:54→18:35)
[2017-10-13 17:14] LABS: CLARITY URINE CLEAR (CLEAR); COLOR URINE DARK YELLOW (YELLOW); KETONES URINE NEGATIVE (NEGATIVE); LEUKOCYTE ESTERASE URINE NEGATIVE (NEGATIVE); NITRITE URINE NEGATIVE (NEGATIVE); OCCULT BLOOD URINE 1+ (NEGATIVE); PH URINE 5.5 (4.5-8.0); PROTEIN URINE 1+ (NEGATIVE); SPECIFIC GRAVITY URINE 1.016 (1.005-1.030)
[2017-10-13] MEDS: ENOXAPARIN 30MG/0.3ML SYR SUBCUT SCH (17:33)
[2017-10-13 20:00] VITALS: BP 104/59
[2017-10-13] MEDS: NEOMY SULF/BACITRAC ZN/POLY OINT 28GM TOP SCH (22:00)
[2017-10-14] MEDS: IPRATROPIUM/ALBUTEROL 0.5-3(2.5)MG/3ML NEB HHN SCH ×3 (01:21→14:11)
[2017-10-14] MEDS: LORAZEPAM 1MG TABLET PO PRN ×2 (05:24→13:43)
[2017-10-14] MEDS: NEOMY SULF/BACITRAC ZN/POLY OINT 28GM TOP SCH ×2 (07:07→13:44)
[2017-10-14 08:00] VITALS: BP 113/59
[2017-10-14] MEDS: FERROUS SULFATE 300MG/5ML UDC PO SCH ×2 (08:39→13:43)
[2017-10-14] MEDS: ZINC SULFATE 220 MG ( 50 ) CAPSULE PO SCH (08:39)
[2017-10-14] MEDS: LACTULOSE 20G/30ML UDC PO SCH (08:39)
[2017-10-14] MEDS: FUROSEMIDE 40MG TABLET PO SCH (08:39)
[2017-10-14] MEDS: ASCORBIC ACID 500 MG TABLET PO SCH (08:40)
[2017-10-14] MEDS: FAMOTIDINE 20MG TABLET PO SCH (08:41)
[2017-10-14] MEDS: CARVEDILOL 3.125 MG TABLET PO SCH (08:41)
[2017-10-14] MEDS: TRAMADOL 50MG TABLET PO PRN (08:41)
[2017-10-14] MEDS: ENOXAPARIN 30MG/0.3ML SYR SUBCUT SCH (08:42)
[2017-10-14] MEDS ORDERED: TAMSULOSIN HCL 0.4MG SR CAPSULE PO SCH (09:00)
[2017-10-14 11:41] LABS: HEMOGLOBIN. 12.7 g/dL (14.0-18.0); MEAN CORPUSCULAR HEMOGLOBIN 28.9 pg (28.0-32.0); MEAN CORPUSCULAR VOLUME 88.7 fL (80.0-94.0); MEAN PLATELET VOLUME 8.1 fl (7.4-10.4); PLATELET 128 x1000/uL (130-400); RED CELL DISTRIBUTION WIDTH 22.5 % (11.6-14.6)
[2017-10-14 12:08] LABS: T4 FREE 1.43 ng/dL (0.76-1.46)
[2017-10-14] MEDS: ACETAMINOPHEN 325MG TABLET PO PRN (13:43)
[2017-10-14 13:50] LABS: PLATELET ESTIMATE SLIGHTLY DECREASED
[2017-10-14 14:02] VITALS: BP 104/60
[2017-10-15 09:11] LABS: 25-HYDROXY VITAMIN D3 23 ng/mL (.)
== END 2017-10-14 14:40 | DRG 535 ==
PROVIDERS: ADMIT Physical Medicine & Rehabilitation Spinal Cord Injury Medicine; ATTEND Internal Medicine
DX: S72.002A Fracture of unspecified part of neck of left femur, initial encounter for closed fracture (principal); G92 Toxic encephalopathy; E43 Unspecified severe protein-calorie malnutrition; N17.9 Acute kidney failure, unspecified; I50.43 Acute on chronic combined systolic (congestive) and diastolic (congestive) heart failure; R13.10 Dysphagia, unspecified; K72.90 Hepatic failure, unspecified without coma; E87.5 Hyperkalemia; I13.0 Hypertensive heart and chronic kidney disease with heart failure and stage 1 through stage 4 chronic kidney disease, or unspecified chronic kidney disease; I42.0 Dilated cardiomyopathy; N18.3 Chronic kidney disease, stage 3 (moderate); Z96.642 Presence of left artificial hip joint; R53.81 Other malaise; J44.9 Chronic obstructive pulmonary disease, unspecified; I95.1 Orthostatic hypotension; I25.10 Atherosclerotic heart disease of native coronary artery without angina pectoris; H54.7 Unspecified visual loss; E83.51 Hypocalcemia; E03.9 Hypothyroidism, unspecified; R26.9 Unspecified abnormalities of gait and mobility; W10.9XXA Fall (on) (from) unspecified stairs and steps, initial encounter; R73.9 Hyperglycemia, unspecified; Z85.46 Personal history of malignant neoplasm of prostate; Z87.891 Personal history of nicotine dependence; Z95.810 Presence of automatic (implantable) cardiac defibrillator; Z90.79 Acquired absence of other genital organ(s); Z82.49 Family history of ischemic heart disease and other diseases of the circulatory system; Z68.25 Body mass index [BMI] 25.0-25.9, adult; Z87.440 Personal history of urinary (tract) infections
CPT/HCPCS: 36415; 70450; 76770; 80048; 80053; 81001; 82140; 82270; 82306; 82607; 82746; 83036; 83735; 84134; 84153; 84439; 84443; 84481; 84630; 85025; 85027; 86376; 87086; 92523; 92610; 93970; 94640; 97110; 97116; 97163; 97167; 97530; 97532; 97535; G0482; J1650; J2060; J3490; J7620; A4315; A5200

== ENCOUNTER 2017-10-18 02:58 | Inpatient (IN) | payer MEDICARE, MEDICAID ==
[2017-10-18] VITALS (13 sets, daily range): BP systolic 85–148; BP diastolic 24–77
[~2017-10-18] VITALS: Ht 195.6 cm; Wt 88.6 kg
[2017-10-18] MEDS ORDERED: METHYLPREDNISOLONE SOD SUCC 125 MG/2 ML VIAL IV STA (03:28)
[2017-10-18] MEDS ORDERED: ASPIRIN 81MG TABLET PO ONE (03:30)
[2017-10-18] MEDS ORDERED: NITROGLYCERIN 0.4MG TABLET SL SL PRN (03:30)
[2017-10-18 04:03] LABS: INR 1.3
[2017-10-18 04:15] LABS: CARBON DIOXIDE 21 mEq/L (21-32); CHLORIDE 113 mEq/L (98-107); TROPONIN I 0.13 ng/mL (0.00-0.04)
[2017-10-18 04:58] LABS: HEMATOCRIT. 43.6 % (42.0-52.0); HEMOGLOBIN. 14.1 g/dL (14.0-18.0); MEAN CORPUSCULAR VOLUME 89.8 fL (80.0-94.0); MEAN PLATELET VOLUME 9.5 fl (7.4-10.4); PLATELET 75 x1000/uL (130-400); RED BLOOD CELL COUNT 4.85 mill/uL (4.7-6.1)
[2017-10-18 05:48] LABS: PLATELET ESTIMATE DECREASED
[2017-10-18] MEDS ORDERED: FUROSEMIDE 100MG/10ML VIAL IVP ONE (07:00)
[2017-10-18] MEDS ORDERED: NA PHOS,M-B/NA PHOS,DI-BA ENEMA 118ML PR PRN (08:00)
[2017-10-18] MEDS ORDERED: GUAIFENESIN 200MG/10ML SUGAR FREE UDC PO PRN (08:00)
[2017-10-18] MEDS ORDERED: DOCUSATE SODIUM 100MG CAPSULE PO PRN (08:00)
[2017-10-18] MEDS ORDERED: ONDANSETRON HCL 4MG/2ML VIAL IV PRN (08:00)
[2017-10-18] MEDS ORDERED: MAGNESIUM/ALUMINUM HYDROXIDE/SIMETHICONE 30ML UDC PO PRN (08:00)
[2017-10-18] MEDS ORDERED: CLONIDINE 0.1MG TABLET PO PRN (08:00)
[2017-10-18] MEDS ORDERED: DIPHENHYDRAMINE 50MG/ML VIAL IV PRN (08:00)
[2017-10-18] MEDS ORDERED: IPRATROPIUM/ALBUTEROL 0.5-3(2.5)MG/3ML NEB INH PRN (08:00)
[2017-10-18] MEDS ORDERED: HYDROCODONE/ACETAMINOPHEN 5/325MG TABLET PO PRN (08:00)
[2017-10-18] MEDS ORDERED: ACETAMINOPHEN 650MG SUPP PR PRN (08:00)
[2017-10-18] MEDS ORDERED: ACETAMINOPHEN 650MG/20.3ML UDC GT PRN (08:00)
[2017-10-18] MEDS ORDERED: ENOXAPARIN 40MG/0.4ML SYR SUBCUT SCH (08:00)
[2017-10-18] MEDS ORDERED: ACETAMINOPHEN 325MG TABLET PO PRN (08:00)
[2017-10-18] MEDS ORDERED: CALCIUM CHLORIDE 1GM/10ML SYR IV ONE (08:41)
[2017-10-18] MEDS ORDERED: ETOMIDATE 2MG/ML 10ML VIAL IV ONE (08:41)
[2017-10-18] MEDS ORDERED: SODIUM BICARBONATE 7.5% 0.9 MEQ/ML 50ML SYR IV ONE (08:41)
[2017-10-18] MEDS ORDERED: VECURONIUM BROMIDE 10 MG/VIAL IV ONE (08:41)
[2017-10-18] MEDS ORDERED: ATROPINE SULFATE 1MG/10ML SYR ONE (08:41)
[2017-10-18] MEDS ORDERED: STERILE WATER FOR INJECTION 10ML VIAL ONE (08:41)
[2017-10-18] MEDS ORDERED: DOPAMINE 400MG IN DEXT 5% 250ML PREMIX IV ONE (08:41)
[2017-10-18] MEDS ORDERED: EPINEPHRINE 0.1MG/ML (1:10,000) 10ML SYR ONE (08:41)
[2017-10-18 09:00] LABS: BG BASE EXCESS -4.7 mmol/L (-2.0-2.0); BG BILEVEL POS AIRWAY PRESSURE 15/5; BG DEOXYHEMOGLOBIN 1.5 % (0.0-5.0); BG FRACTION INSPIRED OXYGEN 100; BG HCO3 ACT 19.3 mmol/L (22.0-26.0); BG METHEMOGLOBIN 0.4 % (0.0-1.5); BG OXYGEN SATURATION 98.5 % (92.0-98.5); BG OXYHEMOGLOBIN 97.1 % (94.0-97.0); BG PH 7.384 (7.350-7.450); BG PO2 132.7 mmHg (75.0-100.0); BG SAMPLE SITE LEFT RADIAL; BG TOTAL HEMOGLOBIN 15.2 g/dL (12.0-18.0); BG VENT MODE MASK - BIPAP; BG VENT RATE 18 set
[2017-10-18] MEDS ORDERED: SODIUM POLYSTYRENE SULFONATE 15 G/60 ML BOT PO NR (09:00)
[2017-10-18] MEDS ORDERED: LACTULOSE 20G/30ML UDC PO NR (09:00)
[2017-10-18] MEDS ORDERED: SODIUM POLYSTYRENE SULFONATE 15 G/60 ML BOT PO SCH (11:45)
[2017-10-18] MEDS ORDERED: IPRATROPIUM/ALBUTEROL 0.5-3(2.5)MG/3ML NEB HHN SCH (12:00)
[2017-10-18] MEDS ORDERED: FUROSEMIDE 40MG/4ML VIAL IV SCH (12:00)
[2017-10-18] MEDS ORDERED: IPRATROPIUM BROMIDE (0.02%) 0.5MG/2.5ML NEB HHN SCH (13:00)
[2017-10-18] MEDS ORDERED: DOBUTAMINE 250MG PREMIX 250 ML IV SCH (13:45)
[2017-10-18] MEDS ORDERED: ACETYLCYSTEINE 200MG/ML 20% VIAL 4ML INH SCH (14:00)
[2017-10-18] MEDS ORDERED: METHYLPREDNISOLONE SOD SUCC 40 MG/ML VIAL IV SCH (14:00)
[2017-10-18] MEDS ORDERED: SODIUM CHLORIDE 0.9% INJ 3ML FLUSH IVF SCH (14:00)
[2017-10-18] MEDS ORDERED: DEXTROSE 5% WATER 1,000 ML IV SCH (14:15)
[2017-10-18] MEDS ORDERED: PIPERACILLIN/TAZ 2.25G PREMIX 50 ML IV SCH (15:00)
[2017-10-18 15:25] LABS: CLARITY URINE CLOUDY (CLEAR); COLOR URINE DARK YELLOW (YELLOW); KETONES URINE NEGATIVE (NEGATIVE); LEUKOCYTE ESTERASE URINE 2+ (NEGATIVE); NITRITE URINE NEGATIVE (NEGATIVE); OCCULT BLOOD URINE 3+ (NEGATIVE); PROTEIN URINE 3+ (NEGATIVE); SPECIFIC GRAVITY URINE 1.016 (1.005-1.030)
[2017-10-18 15:42] LABS: *AMPHETAMINES SCREEN URINE NEGATIVE (NEGATIVE); *BARBITURATES SCREEN URINE NEGATIVE (NEGATIVE); *BENZODIAZEPINES SCREEN URINE NEGATIVE (NEGATIVE); *COCAINE SCREEN URINE NEGATIVE (NEGATIVE); CANNABINOID URINE SCREEN NEGATIVE (NEGATIVE); METHADONE URINE SCREEN NEGATIVE (NEGATIVE); OPIATES URINE SCREEN PRESUMTIVE POSITIVE (NEGATIVE); PHENCYCLIDINE URINE SCREEN NEGATIVE (NEGATIVE)
[2017-10-18] MEDS ORDERED: BUDESONIDE 0.5MG/2ML NEB HHN SCH (16:00)
[2017-10-18 17:45] LABS: TROPONIN I 0.23 ng/mL (0.00-0.04)
[2017-10-18 18:09] LABS: PHOSPHORUS 6.5 mg/dL (2.5-4.9)
[2017-10-18 18:14] LABS: BG BASE EXCESS -5.4 mmol/L (-2.0-2.0); BG BILEVEL POS AIRWAY PRESSURE 15/5; BG CARBOXYHEMOGLOBIN 0.9 % (0.5-1.5); BG DEOXYHEMOGLOBIN 10.6 % (0.0-5.0); BG FRACTION INSPIRED OXYGEN 100; BG HCO3 ACT 19.7 mmol/L (22.0-26.0); BG METHEMOGLOBIN 0.5 % (0.0-1.5); BG OXYGEN SATURATION 89.2 % (92.0-98.5); BG PCO2 37.4 mmHg (35.0-45.0); BG SAMPLE SITE RIGHT BRACHIAL; BG TOTAL HEMOGLOBIN 14.9 g/dL (12.0-18.0); BG VENT MODE MASK - BIPAP; BG VENT RATE 18 set
[2017-10-18] MEDS ORDERED: PROPOFOL 10MG/ML 100ML 100 ML IV PRN (18:45)
[2017-10-18] MEDS ORDERED: PHENYLEPHRINE 20 MG in DEXT 5% WATER 248 ML IV PRN (18:45)
[2017-10-18] MEDS ORDERED: PHENYLEPHRINE 40 MG in DEXT 5% WATER 496 ML IV PRN ×2 (19:15→19:30)
[2017-10-18] MEDS ORDERED: PHENYLEPHRINE IV PRN (20:00)
[2017-10-18] MEDS ORDERED: SODIUM CHLORIDE 0.45% IV PRN (20:00)
[2017-10-19] MEDS ORDERED: ENOXAPARIN 30MG/0.3ML SYR SUBCUT SCH (09:00)
== END 2017-10-18 19:33 | disposition expired | DRG 208 ==
LOC: ER 02:58 → 3WST 06:20 → EDBEDREQSVC 06:23 → EDBEDREQ 06:23 → EDBEDREQTM 06:23 → EDBEDREQSVC 08:11 → ENRESERV 08:19 → CANRESERV 08:19 → EDBEDREQSVC 10:35 → ENRESERV 10:53 → MICUNO 18:14
PROVIDERS: ADMIT Family Medicine; ATTEND Family Medicine
PROC: 5A12012 Performance of Cardiac Output, Single, Manual (ICD-10-PCS; principal; 2017-10-18)
PROC: 5A1935Z Respiratory Ventilation, Less than 24 Consecutive Hours (ICD-10-PCS; 2017-10-18)
PROC: 0BH17EZ Insertion of Endotracheal Airway into Trachea, Via Natural or Artificial Opening (ICD-10-PCS; 2017-10-18)
DX: J96.00 Acute respiratory failure, unspecified whether with hypoxia or hypercapnia (principal); N17.0 Acute kidney failure with tubular necrosis; I46.9 Cardiac arrest, cause unspecified; E43 Unspecified severe protein-calorie malnutrition; I50.23 Acute on chronic systolic (congestive) heart failure; D69.6 Thrombocytopenia, unspecified; E11.22 Type 2 diabetes mellitus with diabetic chronic kidney disease; J18.9 Pneumonia, unspecified organism; S72.002A Fracture of unspecified part of neck of left femur, initial encounter for closed fracture; I13.0 Hypertensive heart and chronic kidney disease with heart failure and stage 1 through stage 4 chronic kidney disease, or unspecified chronic kidney disease; I42.0 Dilated cardiomyopathy; J44.0 Chronic obstructive pulmonary disease with (acute) lower respiratory infection; J44.1 Chronic obstructive pulmonary disease with (acute) exacerbation; N18.4 Chronic kidney disease, stage 4 (severe); R17 Unspecified jaundice; N39.0 Urinary tract infection, site not specified; C61 Malignant neoplasm of prostate; E87.5 Hyperkalemia; F03.90 Unspecified dementia, unspecified severity, without behavioral disturbance, psychotic disturbance, mood disturbance, and anxiety; E03.9 Hypothyroidism, unspecified; Z66 Do not resuscitate; I50.84 End stage heart failure; W19.XXXA Unspecified fall, initial encounter; Z96.642 Presence of left artificial hip joint; I95.1 Orthostatic hypotension; W18.30XA Fall on same level, unspecified, initial encounter; I95.9 Hypotension, unspecified; Z85.46 Personal history of malignant neoplasm of prostate; Z87.891 Personal history of nicotine dependence; Z95.0 Presence of cardiac pacemaker; I25.2 Old myocardial infarction; Z95.810 Presence of automatic (implantable) cardiac defibrillator; Z68.23 Body mass index [BMI] 23.0-23.9, adult
CPT/HCPCS: 36415; 36600; 71010; 80048; 80053; 80305; 81001; 82310; 82375; 82550; 82805; 82962; 83735; 83880; 84100; 84484; 85025; 85610; 87070; 87077; 87086; 87186; 87205; 87804; 93005; 94640; 94660; 94664; 96374; 99291; A4216; J0171; J0461; J1200; J1250; J1265; J1940; J2370; J2543; J2920; J2930; J3490; J7060; J7070; J7608; A4315